=== PATIENT | female | born 1980 | race Caucasian/White ===

== ENCOUNTER 2024-08-10 06:03 | Day surgery (SDC) | payer OTHER ==
[2024-08-09 15:28] VITALS: BP 103/66
[~2024-08-10] VITALS: Ht 167.6 cm; Wt 61.8 kg
[~2024-08-10 06:03] MED LIST: ACYCLOVIR400 MG PO; BUSPIRONE HCL15 MG PO; CLOBETASOL EMOL15 GM; GABAPENTIN300 MG PO; LACTATED RINGER'S 1,000 ML IV SCH; LEXAPRO20 MG PO; MELOXICAM10 MG PO; TIZANIDINE HCL4 M1 PO
[2024-08-10 06:24] VITALS: BP 102/66
[2024-08-10] MEDS ORDERED: CLOBETASOL PRO118 ML TOP (06:27)
[2024-08-10] MEDS ORDERED: ROCURONIUM BROMIDE 50 MG/5 ML SYR ONE (06:36)
[2024-08-10] MEDS ORDERED: ACETAMINOPHEN 1,000 MG/100 ML VIAL ONE (06:36)
[2024-08-10] MEDS ORDERED: KETAMINE in NS 50 MG/5 ML SYR ONE (06:36)
[2024-08-10] MEDS ORDERED: fentaNYL citrate 100 MCG/2 ML VIAL ONE (06:36)
[2024-08-10] MEDS ORDERED: LIDOCAINE HCL 2% 5 ML SDV ONE (06:36)
[2024-08-10] MEDS ORDERED: propofoL 200 MG/20 ML VIAL ONE (06:45)
[2024-08-10] MEDS ORDERED: KETOROLAC TROMETHAMINE 30 MG/ML VIAL ONE (06:45)
[2024-08-10] MEDS ORDERED: DEXAMETHASONE SOD PHOS 4 MG/ML VIAL ONE (06:45)
[2024-08-10] MEDS ORDERED: dexmedeTOMIDine HCl 200 MCG/2 ML VIAL ONE (06:45)
[2024-08-10] MEDS ORDERED: ondansetron HCL 4 MG/2 ML VIAL ONE (06:45)
[2024-08-10] MEDS ORDERED: SCOPOLAMINE 1 MG/3 DAYS PATCH 1 EACH TDSY ONE (06:56)
[2024-08-10] MEDS ORDERED: droPERidol 5 MG/2 ML VIAL ONE (06:56)
[2024-08-10] MEDS ORDERED: IBLOOD GLUCOSE TEST STRIP 1 EA TEST VI PRN ×2 (07:00→07:45)
[2024-08-10] MEDS ORDERED: LIDOCAINE HCL 1% 5 ML SDV INJ ONE (07:00)
[2024-08-10] MEDS ORDERED: LIDOCAINE HCL 4% 5 ML AMP ONE (07:15)
[2024-08-10] MEDS ORDERED: ePHEDrine sulfate 50 MG/ML AMP ONE (07:40)
[2024-08-10] MEDS ORDERED: ondansetron HCL 4 MG/2 ML VIAL IV PRN ×2 (07:45→09:00)
[2024-08-10] MEDS ORDERED: fentaNYL citrate 50 MCG/ML SDV IV PRN (07:45)
[2024-08-10] MEDS ORDERED: NALOXONE HCL 0.4 MG SYR IV PRN ×2 (07:45→09:00)
[2024-08-10] MEDS ORDERED: SUGAMMADEX SODIUM 200 MG/2 ML ML ONE (08:19)
--- NOTE | 2024-08-10 08:47 | NUR ---
08/10/24 0847 Gaviota Jenkins PATIENT IS SHIVERING. PINA LOTT ON WARM. WARM BLANKET GIVEN.
[2024-08-10] MEDS ORDERED: OXYCODONE/APAP 5/325 TAB PO PRN (09:00)
[2024-08-10] MEDS ORDERED: SIMETHICONE 80 MG CHEW PO PRN (09:00)
[2024-08-10] MEDS ORDERED: bisacodyL 10 MG SUPP PR PRN (09:00)
[2024-08-10] MEDS ORDERED: FAMOTIDINE 20 MG TAB PO PRN (09:00)
[2024-08-10] MEDS ORDERED: MAGNESIUM HYDROXIDE/AL HYDROX 30 ML CUP PO PRN (09:00)
[2024-08-10] MEDS ORDERED: FAMOTIDINE 20 MG/ 2 ML VIAL IV PRN (09:00)
[2024-08-10] MEDS ORDERED: SIMETHICONE 80 MG CHEW PO SCH (09:00)
[2024-08-10] MEDS ORDERED: KETOROLAC TROMETHAMINE 30 MG/ML VIAL IV ONE (09:00)
[2024-08-10] MEDS ORDERED: MINERAL OIL/CHONDRUS 30 ML BTL PO SCH (09:00)
[2024-08-10] MEDS ORDERED: LACTATED RINGER'S 1,000 ML IV SCH (09:00)
[2024-08-10] MEDS ORDERED: SENNOSIDES/DOCUSATE 1 EA TAB PO SCH (09:00)
[2024-08-10 09:05] VITALS: BP 119/75
--- NOTE | 2024-08-10 09:12 | NUR ---
Patient returns to treatment room from PACU. Report taken from VAUGHN Meek. Vital signs obtained. Patient reports no pain. She does report some scratiness to her throat, but no other complaints. Water and jell-o provided to patient. Laparoscpic sites are intact, dermabond in place. She has a scopolamine patch behind left ear. Susan pad in place with scant amount of discharge. She denies any needs at this time. Paper prescription given to her boyfriend to drop of at the pharmacy per patient request. Bed in lowest position, call light within reach.
[2024-08-10] MEDS ORDERED: HYDROCODON-ACE1 EA10 PO (09:30)
[2024-08-10] MEDS ORDERED: IBU600 MG PO (09:30)
[2024-08-10 09:54] VITALS: BP 101/62
--- NOTE | 2024-08-10 09:58 | NUR ---
Hourly rounding on patient. patient reports that she feels well, no pain and no nausea. She is starting to feel the urge to urinate, but not quite ready to get up and urinate. Vital signs obtained and WDL. Her surgical sites are unchanges. Susan pad still has scant amount of red drainage, unchanged from previous assessment. IV fluids complete and patient saline locked at this time. More water provided to patient. call light within reach, bed in lowest position. she denies any other needs at this time.
--- NOTE | 2024-08-10 10:08 | NUR ---
Answered patient call light. patient states that she feels like she is able to urinate now. Patient walks to bathroom steadily. She denies any nausea, light headedness, or dizziness. 1010- patient able to urinate 600mL. She is allowed to get dressed at this time. Peripad provided.
--- NOTE | 2024-08-10 10:20 | NUR ---
Discharge instructions were reviewed with both the patient and her boyfriend in detail. They both expressed understanding of all instructions. Water refilled and hot pack provided to patient for her ride home. Patient denies additional questions at this time. Patient is discharged via wheelchair where her boyfriend Gil is to take her home.
--- NOTE | 2024-08-10 15:02 | OR ---
[address] [address] Signed DATE OF OPERATION: 08/10/2024 SURGEON: Camila Gatica MD PREOPERATIVE DIAGNOSES: 1. Chronic pelvic pain. 2. Dysmenorrhea. 3. Probable endometriosis. POSTOPERATIVE DIAGNOSES: 1. Chronic pelvic pain. 2. Dysmenorrhea. 3. Endometriosis. PROCEDURE: Diagnostic and operative laparoscopy with laparoscopic ablation of endometriosis implants. FINDINGS: 8-week size uterus mildly retroverted, normal uterus otherwise, normal fallopian tube and ovaries bilaterally. Normal anterior cul-de-sac. Posterior cul-de-sac with endometriosis implants. Normal appendix. Normal liver edge. Gallbladder not seen. ANESTHESIA: General endotracheal anesthesia with local. FLAT GRINDER OPERATOR: None. ESTIMATED BLOOD LOSS: 5 mL. IV FLUIDS: 700 mL of crystalloid. URINE OUTPUT: 150 mL of clear urine. SPECIMENS: None. Electronically Signed By: CAMILA GATICA MD 08/10/24 1502 PATIENT NAME: DOMENICA PHILLIPS OPERATIVE REPORT DATE OF : 82 REPORT #: [id number] PHYSICIAN: CAMILA GATICA MD PCP: NO PRIMARY CARE PHYSICIAN REPORT IS CONFIDENTIAL AND NOT TO BE RELEASED WITHOUT AUTHORIZATION [address] [address] Signed DRAINS: Ron intraoperatively, removed at the end of the procedure. COUNTS: Correct x2. COMPLICATIONS: None apparent. TECHNIQUE IN DETAIL: With informed consent and negative ECG, the patient was taken to the operative room where her lower extremities were placed in SCDs and pneumatic compression devices. She underwent rapid sequence endotracheal intubation. Her lower extremities were then placed in [place] strips. She underwent brief exam under anesthesia. She was prepped and draped in sterile fashion. A time-out was then performed per protocol. A Ron catheter was placed. Speculum was then placed and the cervix was visualized. The Chapa cannula was placed in the cervical canal and the single toothed tenaculum was placed on the anterior lip of the cervix. Speculum was then removed. Gloves were then removed and attention was turned to the abdomen. 5 mL of 0.5% Marcaine with epinephrine were injected periumbilically and another 5 mL were injected suprapubically. 1 cm periumbilical incision was made. A disposable Veress needle was used to access the abdominal cavity. The Veress needle was attached to CO2 insufflation. Opening pressure was 6 mmHg. With an adequate pneumoperitoneum created, the Veress needle was removed and a 5 mL Visiport trocar was inserted under direct visualization and without difficulty. At this point, the patient was placed in Trendelenburg position. A suprapubic port site was chosen as a midline proximally 1.5 cm above her pubic bone. 5 mL of 0.5% Marcaine was injected and 1 cm incision was made. A 5 mm non-bladed port was inserted under direct visualization and without difficulty. Blunt probe was inserted and the pelvic and abdominal contents were examined with the above mentioned findings. We decided to place a third left lower quadrant port in order to manipulate structures. The left inferior epigastric vessels were identified and site lateral to these vessels was chosen. We also used transillumination toidentify vessels. 5 mL of 0.5% Marcaine were injected in a lateral left lower quadrant site. 1 cm incision was made. 5 mm non-bladed port was inserted under direct visualization and without difficulty. At this point, we identified the left and right ureter using peristalsis. Essentially all implants of the endometriosis were far away from the ureters. The left pelvic sidewall posterior to the left adnexa had a few endometriosis implants, which were cauterized using a J-hook. There were some implants on the left ovary which were also cauterized using J-hook. The right posterior cul-de-sac had an implant which was also cauterized. This was just Electronically Signed By: CAMILA GATICA MD 08/10/24 1502 PATIENT NAME: DOMENICA PHILLIPS OPERATIVE REPORT DATE OF : 82 REPORT #: [id number] PHYSICIAN: CAMILA GATICA MD PCP: NO PRIMARY CARE PHYSICIAN REPORT IS CONFIDENTIAL AND NOT TO BE RELEASED WITHOUT AUTHORIZATION [facility] [address] [place] [id number] Signed medial to the right uterosacral ligament. At this point, we examined the pelvis again for more endometriosis implants and found none. At this point, the pelvis was vigorously irrigated to remove all of the physiologic fluid. All fluid was removed. All areas were hemostatic. At this point, CO2 was turned off and gas was slowly released. We removed the left lower quadrants and suprapubic port and inspected these incision sites and they were noted to hemostatic. At this point, the camera was removed and CO2 was released. The skin incisions were closed with 4-0 Vicryl and skin glue was placed. The single toothed tenaculum and Chapa cannula were removed from the vagina. Cervix was found to be hemostatic. DISPOSITION: The patient was extubated in the operating room and she was taken to the recovery room in stable condition. Camila Gatica MD BB/MODL /[id number] Copies: ~ Electronically Signed By: CAMILA GATICA MD 08/10/24 1502 PATIENT NAME: DOMENICA PHILLIPS OPERATIVE REPORT DATE OF : 82 REPORT #: [id number] PHYSICIAN: CAMILA GATICA MD PCP: NO PRIMARY CARE PHYSICIAN REPORT IS CONFIDENTIAL AND NOT TO BE RELEASED WITHOUT AUTHORIZATION
[2024-08-10] MEDS ORDERED: SEVOFLURANE 250 ML BTL INH ONE (16:36)
== END 2024-08-10 10:25 | disposition home or self-care (01) ==
LOC: DS 06:03 → OPS 06:03 → DS 07:30 → OPS 10:25
PROVIDERS: ATTEND Obstetrics & Gynecology
PROC: 0U5F4ZZ Destruction of Cul-de-sac, Percutaneous Endoscopic Approach (ICD-10-PCS; principal; 2024-08-10 07:30)
DX: N80.352 Endometriosis of the left pelvic sidewall, unspecified depth (principal); N80.102 Endometriosis of left ovary, unspecified depth; N80.329 Endometriosis of the posterior cul-de-sac, unspecified depth; N94.6 Dysmenorrhea, unspecified; F32.A Depression, unspecified; Z87.891 Personal history of nicotine dependence; Z79.899 Other long term (current) drug therapy
CPT/HCPCS: 00840; J0131; J1100; J1790; J1885; J2003; J2405; J2704; J3010; J3490; J7121